=== PATIENT | female | born 1995 | race Caucasian/White ===

== ENCOUNTER 2018-07-20 07:49 | Outpatient (CLI) | payer BC ==
--- NOTE | 2018-07-20 09:11 | ULT ---
COMPLETE RIGHT BREAST ULTRASOUND: Date: 07-20-18 Provided Clinical History: Enlarged lymph nodes. FINDINGS: Sonographic interrogation of the entire right breast and right axilla was performed. There is no evid ence for axillary adenopathy. The sonographic appearance of the breast parenchyma is normal. IMPRESSION: Normal exam. POS: MENG
--- NOTE | 2018-07-20 09:12 | ULT ---
COMPLETE LEFT BREAST ULTRASOUND: Date: 07-20-18 Provided Clinical History: Enlarged lymph nodes. FINDINGS: Sonographic interrogation of the entire left breast as well as the left axilla was performed. There i s no evidence for axillary adenopathy. The sonographic appearance of the left breast is normal. IMPRESSION: Normal exam. POS: MENG
== END 2018-07-20 07:50 | disposition home or self-care (01) ==
LOC: BICULT 07:49
PROVIDERS: ATTEND Student in an Organized Health Care Education/Training Program
DX: R59.1 Generalized enlarged lymph nodes (principal)